=== PATIENT | female | born 1995 | race Two or more races ===

== ENCOUNTER 2024-10-24 08:36 | Emergency (ER) | payer MEDICAID, SELFPAY ==
[2024-10-24 09:12] VITALS: BP 122/85; PULSE 85; RESP 18; TEMP 36.8; O2SAT 95; BMI 36.8
[2024-10-24] MEDS: PROMETHAZINE/DM SYRUP 5 ML DOSE PO (09:49)
[2024-10-24] MEDS: IBUPROFEN TAB 400 MG TABLET 800 MG PO (09:49)
--- NOTE | 2024-10-24 10:27 | EDNOTE_ITS ---
Upper Respiratory Inf. RME/HPI General Chief Complaint: Flu Like Symptoms Stated Complaint: Cough, fever, chest pain X 1 week Time Seen by Provider: 10/24/24 09:06 Arrival date/time: 10/24/24 08:36 This is a 29-year-old female that comes in with complaints of cough, runny nose, and congestion for the past week. Patient states that sometimes she gets trouble breathing when she has coughing spells. Patient has a history of a C- section, cholecystectomy, partial hysterectomy, gastric sleeve. Related Data Previous Rx's ?Medication ?Instructions ?Recorded methocarbamol 750 mg tablet 750 mg PO TID #14 tabs 01/24/24 albuterol sulfate 90 mcg/actuation 1 puff inhalation QID PRN 10/24/24 aerosol inhaler shortness of breath or wheezing #8.5 grams ibuprofen 800 mg tablet 800 mg PO Q6H PRN pain #14 tabs 10/24/24 promethazine-DM 6.25 mg-15 mg/5 mL 5 ml PO Q6H PRN cough #120 mL 10/24/24 oral syrup Allergies Allergy/AdvReac Type Severity Reaction Status Date / Time No Known Allergies Allergy Verified 01/22/24 17:32 Review of Systems Review of Systems Systems Reviewed: All systems reviewed, normal except as documented Past Medical History Past Medical History NEUROLOGIC: Negative Neurological Disorders or Seizures CARDIAC: Negative Cardiac Disorders or Congestive Heart Failure RESPIRATORY: Negative Chronic Obstructive Pulmonary Disease (COPD) or Asthma GASTROINTESTINAL: Positive Gall Bladder Disease; Negative Gastrointestinal Disorders or Hepatitis GENITOURINARY: Negative Genitourinary Disorders or Renal Disease REPRODUCTIVE: Positive Previous Pregnancies MUSCULOSKELETAL: Negative Musculoskeletal Disorders ENDOCRINE: Positive Endocrine Disorders; Negative Diabetes Mellitus Type 1, Diabetes Mellitus Type 2 or Hypothyroidism HEMATOLOGIC: Negative Blood Disorders or Sickle Cell Disease PSYCHO/SOCIAL: Positive Anxiety OTHER HISTORY: Negative Hospitalization, Autoimmune Disease, Down Syndrome, Developmental Delay, Falls, Blood Transfusions, Blood Transfusion Reaction, Anesthesia Reactions, Human Immunodeficiency Virus (HIV), Chicken Pox, Measles, Mumps, Rubella (Pashto Measles), Pertussis or Clostridium Difficile Family History FAMILY HISTORY: Positive Family Cancer; Negative Family Psychiatric Problems, Family Respiratory Disorders, Family Cardiac Disorders, Family Gastrointestinal Problems, Family Surgery or Family Anesthesia Reaction Surgical History SURGICAL: Positive Hysterectomy and Section Social History SMOKING STATUS: Never smoker SUBSTANCE USE: does not use ED Exam General General appearance: Present alert and in no apparent distress Head Head exam: Present atraumatic Eye Eye exam: Present normal appearance, PERRL and EOMI ENT ENT exam: Present normal exam, normal oropharynx and mucous membranes moist Neck Neck exam: Present normal inspection, full ROM and trachea midline Chest Chest inspection: Present normal inspection and symmetric chest wall rise Respiratory Respiratory exam: Present normal lung sounds bilaterally Cardiovascular Cardiovascular exam: Present regular rate, normal rhythm and normal heart sounds Abdominal Exam Abdominal exam: Present soft Extremities Exam Extremities exam: Present normal inspection and full ROM Back Exam Back exam: Present normal inspection and full ROM Neurological Exam Neurological exam: Present alert, oriented X3 and CN II-XII intact Psychiatric Psychiatric exam: Present normal affect and normal mood Skin Skin exam: Present warm, dry, intact and normal color Course Quality Measures none Orders Category Date Time Status Bedside COVID-19 Antigen Test NOW Care 10/24/24 09:38 Completed Ibuprofen Tab [Motrin Tab] Med 10/24/24 09:36 Discontinued 800 mg PO X1 ONE Promethazine/Dextromethorph [Phenergan Dm Syrup] Med 10/24/24 09:35 Discontinued 5 ml PO X1 ONE Vital Signs Vital signs: Vital Signs Temperature 98.3 F 10/24/24 09:12 Pulse Rate 85 10/24/24 09:12 Respiratory Rate 18 10/24/24 09:12 Blood Pressure 122/85 H 10/24/24 09:12 Pulse Oximetry (%) 95 10/24/24 09:12 Oxygen Delivery Method Room Air 10/24/24 09:12 Upper Respiratory Infection MDM Narrative MDM Narrative:: Pt given ibuprofen and promethazine dm. She felt better. Will send pt home and have her follow up with primary provider in 1-2 days. Come back to ED if symptoms change or worsen. Patient data External records reviewed:: [facility] previous records Clinical information provided by:: patient Social determinants that could affect healthcare access:: none Patient has the following chronic illnesses:: see hpi How is presenting disease/condition affected by chronic disease/condition?: no chronic disease Evaluation data The following diagnostics were reviewed and interpreted by me:: lab results Lab and/or radiology exams considered but not ordered:: none Interpretation Summary: see note Medications / Prescriptions Medications or Prescriptions considered but not ordered:: none Medication administrations:: Medication Administration History Discontinued Medications Ibuprofen (Ibuprofen Tab 400 Mg Tablet) 800 mg PO X1 ONE Stop: 10/24/24 09:37 Last Admin: 10/24/24 09:49 Dose: 800 mg Documented By: SATNAM Promethazine HCl/Dextromethorphan (Promethazine/Dm Syrup 5 Ml Dose) 5 ml PO X1 ONE; Protocol Stop: 10/24/24 09:36 Last Admin: 10/24/24 09:49 Dose: 5 ml Documented By: SATNAM see mar Consultations Consultation(s) initiated? (list below): No Diagnosis Upper Respiratory Differential Diagnosis: upper respiratory infection, sinusitis, viral infection and influenza Most likely diagnosis given after review of the tests above:: upper respiratory infection Admission Indicated Admission indicated?: not indicated Admission Request Was there a request for admission?: No Disposition Plan Disposition Plan: Discharge Discharge Attestation Discharge Attestation: The patient and all family members were given an opportunity to ask questions and understood the discharge instructions. Discharge instructions specifically effects, indications for sooner follow up or return to the emergency department, and the expected course of current diagnosis. Patient condition: Stable Discharge Plan Plan Patient Disposition: HOME (Self Care) Patient condition on transfer: Stable Prescriptions/Referrals Prescriptions/Med Rec: New ibuprofen 800 mg tablet 800 mg PO Q6H PRN (Reason: pain) Qty: 14 0RF albuterol sulfate 90 mcg/actuation HFA aerosol inhaler 1 puff inhalation QID PRN (Reason: shortness of breath or wheezing) Qty: 8.5 0RF promethazine-DM 6.25-15 mg/5 mL syrup 5 ml PO Q6H PRN (Reason: cough) Qty: 120 0RF No Action methocarbamol 750 mg tablet 750 mg PO TID Qty: 14 0RF Referrals: Prem Alva MD [Primary Care Provider] - In 1 week Problem List Clinical Impression: Reactive airway disease, Cough, Upper respiratory infection, viral Patient/Caregiver Discharge Instructions Discharge Activity: activity as tolerated Education Materials: ED Inhaler Use, ED URI, Viral, No Abx (Adult) Additional Instructions: Follow-up with primary provider in 1 to 2 days. Come back to the emergency room if symptoms change or worsen. Print Language: Greenlandic Stand Alone Forms: Annamaria Award Info., Patient Portal Info Letter MANJIT/EH Supervising Physician MANJIT/EH Supervising Physician: bisi
== END 2024-10-24 11:39 | disposition home or self-care (01) ==
PROVIDERS: Emergency Provider Emergency Medicine; PCP Family Medicine
DX: J06.9 Acute upper respiratory infection, unspecified (principal); J45.909 Unspecified asthma, uncomplicated
CPT/HCPCS: 99282; A9270

== ENCOUNTER 2024-10-30 13:22 | Emergency (ER) | payer MEDICAID, SELFPAY ==
[2024-10-30 13:23] VITALS: BMI 32.5
[2024-10-30 14:10] VITALS: BP 118/64; PULSE 86; RESP 18; TEMP 37; O2SAT 95
--- NOTE | 2024-10-30 14:18 | XR_ITS ---
Examination: PA lateral chest 2 views Technique: Upright PA lateral chest 2 views Exam date and time: October 22, 2024 1427 hrs. Comparison January 22, 2024 Indications: Coughing beginning 3 weeks ago. Findings: Normal heart size The lungs are clear. The osseous structures are intact Impression: No active disease
--- NOTE | 2024-10-30 14:18 | PD.EDURI ---
Upper Respiratory Inf. RME/HPI General Chief Complaint: Flu Like Symptoms Stated Complaint: FLU SYMPTOMS FOR 2 WEEKS, FACIAL PAIN, HEADACHE Time Seen by Provider: 10/30/24 14:09 Source: patient Arrival date/time: 10/30/24 13:22 29-year-old female presents emergency department complaining of cough, headache, and right facial pain that is been ongoing for 2 weeks. Mode of arrival: ambulatory Limitations: no limitations Related Data Previous Rx's ?Medication ?Instructions ?Recorded methocarbamol 750 mg tablet 750 mg PO TID #14 tabs 01/24/24 albuterol sulfate 90 mcg/actuation 1 puff inhalation QID PRN 10/24/24 aerosol inhaler shortness of breath or wheezing #8.5 grams ibuprofen 800 mg tablet 800 mg PO Q6H PRN pain #14 tabs 10/24/24 promethazine-DM 6.25 mg-15 mg/5 mL 5 ml PO Q6H PRN cough #120 mL 10/24/24 oral syrup acetaminophen 500 mg capsule 500 mg PO Q6H PRN pain #30 caps 10/30/24 albuterol sulfate 90 mcg/actuation 2 puff inhalation Q6H PRN 10/30/24 aerosol inhaler (Ventolin HFA) shortness of breath or wheezing #6.7 grams prednisone 20 mg tablet 20 mg PO BID 3 days #6 tabs 10/30/24 Allergies Allergy/AdvReac Type Severity Reaction Status Date / Time No Known Allergies Allergy Verified 10/30/24 13:23 Review of Systems Review of Systems Systems Reviewed: All systems reviewed, normal except as documented Constitutional Constitutional: Reports system reviewed and no additional complaints, except as documented, Denies body ache(s), Denies chills, Denies fever(s) and Reports headache(s) Eyes Eyes: Reports system reviewed and no additional complaints, except as documented and Denies change in vision ENT Ears, Nose, Mouth, and Throat: Reports system reviewed and no additional complaints, except as documented, Denies disequilibrium, Denies dizziness, Reports headache(s), Denies sore throat and Denies vertigo Cardiovascular Cardiovascular: Reports system reviewed and no additional complaints, except as documented, Denies chest pain and Denies dyspnea Respiratory Respiratory: Reports system reviewed and no additional complaints, except as documented, Denies chest congestion, Reports cough and Denies dyspnea Gastrointestinal Gastrointestinal: Reports system reviewed and no additional complaints, except as documented, Denies abdominal pain, Denies nausea and Denies vomiting Musculoskeletal Musculoskeletal: Reports system reviewed and no additional complaints, except as documented, Denies abnormal gait, Denies arthralgias and Reports other (Facial pain) Integumentary/Breasts Skin/Breast: Reports system reviewed and no additional complaints, except as documented, Denies erythema, Denies rash and Denies wounds Neurologic Neurologic: Reports system reviewed and no additional complaints, except as documented, Denies abnormal gait, Denies disequilibrium, Denies dizziness, Reports headache(s) and Denies vertigo Past Medical History Past Medical History NEUROLOGIC: Negative Neurological Disorders or Seizures CARDIAC: Negative Cardiac Disorders or Congestive Heart Failure RESPIRATORY: Negative Chronic Obstructive Pulmonary Disease (COPD) or Asthma GASTROINTESTINAL: Positive Gall Bladder Disease; Negative Gastrointestinal Disorders or Hepatitis GENITOURINARY: Negative Genitourinary Disorders or Renal Disease REPRODUCTIVE: Positive Previous Pregnancies MUSCULOSKELETAL: Negative Musculoskeletal Disorders ENDOCRINE: Positive Endocrine Disorders; Negative Diabetes Mellitus Type 1, Diabetes Mellitus Type 2 or Hypothyroidism HEMATOLOGIC: Negative Blood Disorders or Sickle Cell Disease PSYCHO/SOCIAL: Positive Anxiety OTHER HISTORY: Negative Hospitalization, Autoimmune Disease, Down Syndrome, Developmental Delay, Falls, Blood Transfusions, Blood Transfusion Reaction, Anesthesia Reactions, Human Immunodeficiency Virus (HIV), Chicken Pox, Measles, Mumps, Rubella (Turkish Measles), Pertussis or Clostridium Difficile Family History FAMILY HISTORY: Positive Family Cancer; Negative Family Psychiatric Problems, Family Respiratory Disorders, Family Cardiac Disorders, Family Gastrointestinal Problems, Family Surgery or Family Anesthesia Reaction Surgical History SURGICAL: Positive Hysterectomy and Section Social History SMOKING STATUS: Never smoker SUBSTANCE USE: does not use ED Exam General Limitations: Present no limitations General appearance: Present alert and in no apparent distress Head Head exam: Present atraumatic Eye Eye exam: Present normal appearance, PERRL and EOMI ENT ENT exam: Present normal exam, normal oropharynx and mucous membranes moist Neck Neck exam: Present normal inspection, full ROM and trachea midline Chest Chest inspection: Present normal inspection and symmetric chest wall rise Respiratory Respiratory exam: Present normal lung sounds bilaterally and wheezes Cardiovascular Cardiovascular exam: Present regular rate, normal rhythm and normal heart sounds Abdominal Exam Abdominal exam: Present soft and normal bowel sounds Extremities Exam Extremities exam: Present normal inspection and full ROM Back Exam Back exam: Present normal inspection and full ROM Neurological Exam Neurological exam: Present alert, oriented X3 and CN II-XII intact Psychiatric Psychiatric exam: Present normal affect and normal mood Skin Skin exam: Present warm, dry, intact and normal color Course Quality Measures none Orders Category Date Time Status Bedside Influenza A&B Antigen Test NOW Care 10/30/24 14:18 Completed XR chest 2V Stat Exams 10/30/24 14:18 Completed Acetaminophen Tab [Tylenol ES Tab] Med 10/30/24 14:19 Discontinued 1,000 mg PO X1 ONE Albuterol/Ipratr Rt Janae [Duoneb Rt Janae] Med 10/30/24 14:18 Discontinued 3 ml INH X1 ONE Vital Signs Vital signs: Vital Signs Temperature 98.6 F 10/30/24 14:10 Pulse Rate 86 10/30/24 14:10 Respiratory Rate 18 10/30/24 14:10 Blood Pressure 118/64 10/30/24 14:10 Pulse Oximetry (%) 95 10/30/24 14:10 Oxygen Delivery Method Room Air 10/30/24 14:10 95% room air within normal limits Upper Respiratory Infection MDM Narrative MDM Narrative:: 29-year-old female presents emergency department complaining of cough, headache, and right facial pain that is been ongoing for 2 weeks. Bilateral upper lobe expiratory wheeze on auscultation and significant improved after breathing treatment. Chest x-ray was unremarkable for any pneumonic infiltrates. Patient likely has viral infection. Patient appears nontoxic and is hemodynamically stable. Patient not appear to be in respiratory distress. Patient data External records reviewed:: [facility] previous records Clinical information provided by:: patient Social determinants that could affect healthcare access:: none Patient has the following chronic illnesses:: None How is presenting disease/condition affected by chronic disease/condition?: no chronic disease Evaluation data The following diagnostics were reviewed and interpreted by me:: radiology exam(s) Lab and/or radiology exams considered but not ordered:: Ordered Interpretation Summary: Interpreted by me Medications / Prescriptions Medications or Prescriptions considered but not ordered:: Ordered Medication administrations:: Medication Administration History Discontinued Medications Acetaminophen (Acetaminophen 500 Mg Tablet) 1,000 mg PO X1 ONE Stop: 10/30/24 14:20 Last Admin: 10/30/24 14:25 Dose: 1,000 mg Documented By: Albuterol/Ipratropium (Albuterol/Ipratropium (Duoneb) Rt Janae 3 Ml Nebu) 3 ml INH X1 ONE Stop: 10/30/24 14:19 Last Admin: 10/30/24 14:34 Dose: 3 ml Documented By: MR Given Consultations Consultation(s) initiated? (list below): No Diagnosis Upper Respiratory Differential Diagnosis: upper respiratory infection, sinusitis, viral infection, bronchitis, influenza and pharyngitis Most likely diagnosis given after review of the tests above:: Viral infection Admission Indicated Admission indicated?: not indicated Admission Request Was there a request for admission?: No Disposition Plan Disposition Plan: Discharge Discharge Attestation Discharge Attestation: The patient and all family members were given an opportunity to ask questions and understood the discharge instructions. Discharge instructions specifically effects, indications for sooner follow up or return to the emergency department, and the expected course of current diagnosis. Patient condition: Stable Discharge Plan Plan Patient Disposition: HOME (Self Care) Disposition Comment: Stable Prescriptions/Referrals Prescriptions/Med Rec: New albuterol sulfate [Ventolin HFA] 90 mcg/actuation HFA aerosol inhaler 2 puff inhalation Q6H PRN (Reason: shortness of breath or wheezing) Qty: 6.7 0RF prednisone 20 mg tablet 20 mg PO BID 3 Days Qty: 6 0RF Taper: Prednisone Taper 20 mg DAILY for 2 Days and 0 Hour 10 mg DAILY for 2 Days and 0 Hour 5 mg DAILY for 7 Days and 0 Hour acetaminophen 500 mg capsule 500 mg PO Q6H PRN (Reason: pain) Qty: 30 0RF No Action ibuprofen 800 mg tablet 800 mg PO Q6H PRN (Reason: pain) Qty: 14 0RF albuterol sulfate 90 mcg/actuation HFA aerosol inhaler 1 puff inhalation QID PRN (Reason: shortness of breath or wheezing) Qty: 8.5 0RF promethazine-DM 6.25-15 mg/5 mL syrup 5 ml PO Q6H PRN (Reason: cough) Qty: 120 0RF methocarbamol 750 mg tablet 750 mg PO TID Qty: 14 0RF Problem List Clinical Impression: Viral infection Patient/Caregiver Discharge Instructions Discharge Activity: activity as tolerated Education Materials: ED Viral Syndrome (Adult) Additional Instructions: Take Tylenol or ibuprofen as needed for fever or pain. Use inhaler as needed for any shortness of breath or wheezing. Drink plenty of fluids and get plenty of rest. Follow-up with primary care provider in 2 to 3 days. Return to emergency department for any worsening symptoms or as needed. Print Language: Namibian Stand Alone Forms: Annamaria Award Info., Patient Portal Info Letter PA/BINDING MACHINE OPERATOR Supervising Physician PA/BINDING MACHINE OPERATOR Supervising Physician: Dr. Gonzalez
[2024-10-30] MEDS: ACETAMINOPHEN 500 MG TABLET 1000 MG PO (14:25)
[2024-10-30] MEDS: ALBUTEROL/IPRATROPIUM (Duoneb) RT SOL 3 ML NEBU INH (14:34)
[2024-10-30 14:43] VITALS: PULSE 84; RESP 16; O2SAT 99
== END 2024-10-30 15:46 | disposition home or self-care (01) ==
PROVIDERS: Emergency Provider Emergency Medicine
DX: B34.9 Viral infection, unspecified (principal)
CPT/HCPCS: 71046; 87400; 94640; 99283; A9270

== ENCOUNTER 2025-04-28 17:00 | Emergency (ER) | payer MEDICAID, SELFPAY ==
[2025-04-28 18:42] VITALS: BMI 28.1
[2025-04-28 18:43] VITALS: BP 125/87; PULSE 77; RESP 17; TEMP 36.5; O2SAT 99
--- NOTE | 2025-04-28 19:34 | XR_ITS ---
Examination: CT brain head without contrast. 2-D sagittal coronal reconstructions Date and time of exam:April 28, 2025, 195 hours Comparison 07/18/2021 INDICATIONS: Headaches blurred vision today, history headaches CTDI: vol (mGy):46 DLP: (mGycm):880 Technique: Multiple CT axial sections of the brain have been obtained, 5 mm slice thickness. Contrast has not been administered. 2-D sagittal, coronal reconstructions have been obtained Low dose protocols were performed. One or more of the following dose reduction techniques were used; automated exposure control, adjustment of the mA and/or KV according to patient size, use of iterative reconstruction technique. Findings: No significant ventricular enlargement. Intra-axial or extra-axial hemorrhage density is not seen. No mass effect or midline shift Basal cisterns are not remarkable. Fourth ventricle is midline. Cranial vault intact. Prominent maxillary antral and ethmoid sinusitis Impression: Negative for acute hemorrhage, mass effect or midline shift
[2025-04-28] MEDS: METOCLOPRAMIDE 5 MG TABLET 10 MG PO (20:14)
[2025-04-28] MEDS: SUMAtriptan INJ 6 MG/0.5 ML VIAL SC (20:15)
--- NOTE | 2025-04-28 22:11 | EDNOTE_ITS ---
<Statement entered by Sally De La Paz MD - 04/29/25 23:29> As co-signing physician, I was present and available for consult prn. I concur with the plan and care as documented by the midlevel provider. ED Headache RME/HPI General Chief Complaint: Headache Stated Complaint: TIDWELL since noon today, blurry vision Time Seen by Provider: 04/28/25 19:34 Arrival date/time: 04/28/25 17:00 29F with no significant PMH presents to ED with 1 day of R-sided TIDWELL, blurry vision, and light sensitivity. Patient denies AMS, seizures, slurred speech, and fall/trauma. Limitations: no limitations Related Data Previous Rx's ?Medication ?Instructions ?Recorded methocarbamol 750 mg tablet 750 mg PO TID #14 tabs albuterol sulfate 90 mcg/actuation 1 puff inhalation Q ID PRN 10/24/24 aerosol inhaler shortness of breath or wheez ing #8.5 grams ibuprofen 800 mg tablet 800 mg PO Q6H PRN pain #14 t abs 10/24/24 promethazine-DM 6.25 mg-15 mg/5 mL 5 ml PO Q6H PRN cou gh #120 mL 10/24/24 oral syrup acetaminophen 500 mg capsule 500 mg PO Q6H PRN pain #3 0 caps 10/30/24 albuterol sulfate 90 mcg/actuation 2 puff inhalation Q 6H PRN 10/30/24 aerosol inhaler (Ventolin HFA) shortness of breath or wheezing #6.7 grams rizatriptan 10 mg disintegrating See Rx Instructions P O .COMPLEX 04/28/25 tablet (Maxalt-OLIVE GRADER) #20 tabs Allergies Allergy/AdvReac Type Severity Reaction Status Date / Time No Known Allergies Allergy Verified 04/28/25 17:04 Review of Systems Review of Systems Systems Reviewed: All systems reviewed, normal except as documented Constitutional Constitutional: Reports system reviewed and no additional complaints, except as documented, Reports as per HPI, Denies fever(s) and Reports headache(s) Eyes Eyes: Reports as per HPI, Reports blurry vision and Reports photophobia ENT Ears, Nose, Mouth, and Throat: Denies disequilibrium and Reports headache(s) Cardiovascular Cardiovascular: Reports system reviewed and no additional complaints, except as documented, Denies chest pain and Denies dyspnea Respiratory Respiratory: Reports system reviewed and no additional complaints, except as documented, Denies cough and Denies dyspnea Gastrointestinal Gastrointestinal: Reports system reviewed and no additional complaints, except as documented, Denies abdominal pain, Denies nausea and Denies vomiting Neurologic Neurologic: Reports system reviewed and no additional complaints, except as documented, Denies confusion, Denies disequilibrium and Reports headache(s) Psychiatric Psychiatric: Denies confusion Past Medical History Past Medical History NEUROLOGIC: Negative Neurological Disorders or Seizures CARDIAC: Negative Cardiac Disorders or Congestive Heart Failure RESPIRATORY: Negative Chronic Obstructive Pulmonary Disease (COPD) or Asthma GASTROINTESTINAL: Positive Gall Bladder Disease; Negative Gastrointestinal Disorders or Hepatitis GENITOURINARY: Negative Genitourinary Disorders or Renal Disease REPRODUCTIVE: Positive Previous Pregnancies MUSCULOSKELETAL: Negative Musculoskeletal Disorders ENDOCRINE: Positive Endocrine Disorders; Negative Diabetes Mellitus Type 1, Diabetes Mellitus Type 2 or Hypothyroidism HEMATOLOGIC: Negative Blood Disorders or Sickle Cell Disease PSYCHO/SOCIAL: Positive Anxiety OTHER HISTORY: Negative Hospitalization, Autoimmune Disease, Down Syndrome, Developmental Delay, Falls, Blood Transfusions, Blood Transfusion Reaction, Anesthesia Reactions, Human Immunodeficiency Virus (HIV), Chicken Pox, Measles, Mumps, Rubella (Vincentian Measles), Pertussis or Clostridium Difficile Family History FAMILY HISTORY: Positive Family Cancer; Negative Family Psychiatric Problems, Family Respiratory Disorders, Family Cardiac Disorders, Family Gastrointestinal Problems, Family Surgery or Family Anesthesia Reaction Surgical History SURGICAL: Positive Hysterectomy and Section Social History SMOKING STATUS: Never smoker SUBSTANCE USE: does not use ED Exam General Limitations: Present no limitations General appearance: Present alert and in no apparent distress Head Head exam: Present atraumatic Eye Eye exam: Present normal appearance, PERRL and EOMI ENT ENT exam: Present normal exam, normal oropharynx and mucous membranes moist Neck Neck exam: Present normal inspection, full ROM and trachea midline Chest Chest inspection: Present normal inspection and symmetric chest wall rise Respiratory Respiratory exam: Present normal lung sounds bilaterally Cardiovascular Cardiovascular exam: Present regular rate, normal rhythm and normal heart sounds Abdominal Exam Abdominal exam: Present soft and normal bowel sounds Extremities Exam Extremities exam: Present normal inspection and full ROM Back Exam Back exam: Present normal inspection and full ROM Neurological Exam Neurological exam: Present alert, oriented X3 and CN II-XII intact Psychiatric Psychiatric exam: Present normal affect and normal mood Skin Skin exam: Present warm, dry, intact and normal color Course Quality Measures none Orders Category Date Time Status CT head/brain wo con Stat Exams 04/28/25 19:34 Completed Metoclopramide [Reglan] Med 04/28/25 19:34 Discontinued 10 mg PO X1 ONE SUMAtriptan INJ [Imitrex Inj] Med 04/28/25 19:34 Discontinued 6 mg SC X1 ONE Vital Signs Vital signs: Vital Signs Temperature 97.7 F 04/28/25 18:43 Pulse Rate 77 04/28/25 18:43 Respiratory Rate 17 04/28/25 18:43 Blood Pressure 125/87 H 04/28/25 18:43 Pulse Oximetry (%) 99 04/28/25 18:43 Oxygen Delivery Method Room Air 04/28/25 18:43 O2 at 99% on RA and WNLs Headache MDM Narrative MDM Narrative:: 29F with no significant PMH presents to ED with 1 day of R-sided TIDWELL, blurry vision, and light sensitivity. Patient denies AMS, seizures, slurred speech, and fall/trauma. Physical exam reveals normal pupil response and EOM. CN II-XII grossly intact. Normal speech. Strength equal bilaterally. Gait normal. Patient is afebrile, calm, and alert. CT unremarkable. Migraine cocktail improved symtoms. Patient data External records reviewed:: [facility] previous records Clinical information provided by:: patient Social determinants that could affect healthcare access:: none Patient has the following chronic illnesses:: none How is presenting disease/condition affected by chronic disease/condition?: no chronic disease Evaluation data The following diagnostics were reviewed and interpreted by me:: radiology exam(s) Lab and/or radiology exams considered but not ordered:: ordered Interpretation Summary: above Medications / Prescriptions Medications or Prescriptions considered but not ordered:: ordered Medication administrations:: Medication Administration History Discontinued Medications Metoclopramide HCl (Metoclopramide 5 Mg Tablet) 10 mg PO X1 ONE Stop: 04/28/25 19:35 Last Admin: 04/28/25 20:14 Dose: 10 mg Documented By: Sumatriptan Succinate (Sumatriptan Inj 6 Mg/0.5 Ml Vial) 6 mg SC X1 ONE Stop: 04/28/25 19:35 Last Admin: 04/28/25 20:15 Dose: 6 mg Documented By: above Consultations Consultation(s) initiated? (list below): No Diagnosis Differential diagnosis headache: migraine, tension headache, subarachnoid hemorrhage, headache, meningitis, sinusitis and postconcussion syndrome Most likely diagnosis given after review of the tests above:: migraine Admission Indicated Admission indicated?: not indicated Admission Request Was there a request for admission?: No Disposition Plan Disposition Plan: Discharge Discharge Attestation Discharge Attestation: The patient and all family members were given an opportunity to ask questions and understood the discharge instructions. Discharge instructions specifically effects, indications for sooner follow up or return to the emergency department, and the expected course of current diagnosis. Patient condition: Stable Discharge Plan Plan Patient Disposition: HOME (Self Care) Discharge Disposition comment: Stable Prescriptions/Referrals Prescriptions/Med Rec: New rizatriptan [Maxalt-OLIVE GRADER] 10 mg tablet,disintegrating See Rx Instructions .ROUTE .COMPLEX Qty: 20 0RF Rx Instructions: take 1 tab at onset of headache; if no relief may repeat 1 tab after at least 2 hrs; max = 3 tabs/24 hr No Action ibuprofen 800 mg tablet 800 mg PO Q6H PRN (Reason: pain) Qty: 14 0RF albuterol sulfate 90 mcg/actuation HFA aerosol inhaler 1 puff inhalation QID PRN (Reason: shortness of breath or wheezing) Qty: 8.5 0RF promethazine-DM 6.25-15 mg/5 mL syrup 5 ml PO Q6H PRN (Reason: cough) Qty: 120 0RF albuterol sulfate [Ventolin HFA] 90 mcg/actuation HFA aerosol inhaler 2 puff inhalation Q6H PRN (Reason: shortness of breath or wheezing) Qty: 6.7 0RF acetaminophen 500 mg capsule 500 mg PO Q6H PRN (Reason: pain) Qty: 30 0RF methocarbamol 750 mg tablet 750 mg PO TID Qty: 14 0RF Referrals: Prem Alva MD [Primary Care Provider] - In 1 week Problem List Clinical Impression: Migraine Patient/Caregiver Discharge Instructions Education Materials: ED Headache, Migraine, Classic Additional Instructions: Please follow-up with PCP within 24-48 hours and return immediately if symptoms worsen. NSAIDs like ibuprofen tend to work better for this type of pain. Take first before Maxalt. Print Language: Persian Stand Alone Forms: Patient Portal Info Letter MANJIT/EH Supervising Physician MANJIT/EH Supervising Physician: Dr. De La Paz
== END 2025-04-28 21:26 | disposition home or self-care (01) ==
PROVIDERS: Emergency Provider Emergency Medicine; PCP Family Medicine
DX: G43.909 Migraine, unspecified, not intractable, without status migrainosus (principal)
CPT/HCPCS: 70450; 96372; 99284; J3030; A9270

== ENCOUNTER 2025-08-22 10:17 | Emergency (ER) | payer MEDICAID, SELFPAY ==
[2025-08-22 10:17] VITALS: BMI 27.4
[2025-08-22 10:40] VITALS: BP 127/68; PULSE 87; RESP 18; TEMP 36.9; O2SAT 99
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
--- NOTE | 2025-08-22 10:45 | EDNOTE_ITS ---
<Statement entered by Sally De La Paz MD - 08/22/25 14:40> As co-signing physician, I was present and available for consult prn. I concur with the plan and care as documented by the midlevel provider. Lower Extremity Injury RME/HPI General Chief Complaint: Ankle/Foot Injury Stated Complaint: LEFT ANKLE INJURY Time Seen by Provider: 08/22/25 10:37 Source: patient Arrival date/time: 08/22/25 10:17 30-year-old female with no known medical history presents to the emergency room with a chief complaint of tenderness and pain to her left lower leg x 1 week. Patient states she has a history of an ankle fracture to the area. Mode of arrival: ambulatory Limitations: no limitations Related Data Previous Rx's ?Medication ?Instructions ?Recorded methocarbamol 750 mg tablet 750 mg PO TID #14 tabs albuterol sulfate 90 mcg/actuation 1 puff inhalation Q ID PRN 10/24/24 aerosol inhaler shortness of breath or wheez ing #8.5 grams ibuprofen 800 mg tablet 800 mg PO Q6H PRN pain #14 t abs 10/24/24 promethazine-DM 6.25 mg-15 mg/5 mL 5 ml PO Q6H PRN cou gh #120 mL 10/24/24 oral syrup acetaminophen 500 mg capsule 500 mg PO Q6H PRN pain #3 0 caps 10/30/24 albuterol sulfate 90 mcg/actuation 2 puff inhalation Q 6H PRN 10/30/24 aerosol inhaler (Ventolin HFA) shortness of breath or wheezing #6.7 grams rizatriptan 10 mg disintegrating See Rx Instructions P O .COMPLEX 04/28/25 tablet (Maxalt-TO[employer]T PRODUCTS MOLDER) #20 tabs ibuprofen 600 mg tablet 600 mg PO Q8H PRN fever or p ain 08/22/25 #20 tabs Allergies Allergy/AdvReac Type Severity Reaction Status Date / Time No Known Allergies Allergy Verified 08/22/25 10:19 Review of Systems Review of Systems Systems Reviewed: All systems reviewed, normal except as documented Constitutional Constitutional: Reports system reviewed and no additional complaints, except as documented, Denies fatigue, Denies fever(s), Denies headache(s) and Denies weakness Eyes Eyes: Reports system reviewed and no additional complaints, except as documented, Denies blurry vision and Denies change in vision ENT Ears, Nose, Mouth, and Throat: Reports system reviewed and no additional complaints, except as documented, Denies otalgia, Denies headache(s), Denies nasal congestion, Denies throat swelling and Denies vertigo Cardiovascular Cardiovascular: Reports system reviewed and no additional complaints, except as documented, Denies chest pain, Denies dyspnea and Denies dyspnea on exertion Respiratory Respiratory: Reports system reviewed and no additional complaints, except as documented, Denies chest congestion, Denies cough, Denies dyspnea, Denies dyspnea on exertion and Denies wheezing Gastrointestinal Gastrointestinal: Reports system reviewed and no additional complaints, except as documented, Denies abdominal pain, Denies cramping, Denies nausea and Denies vomiting Genitourinary Genitourinary: Reports system reviewed and no additional complaints, except as documented Musculoskeletal Musculoskeletal: Reports system reviewed and no additional complaints, except as documented, Reports abnormal gait, Reports arthralgias, Denies back pain and Reports limited range of motion Integumentary/Breasts Skin/Breast: Reports system reviewed and no additional complaints, except as documented and Denies wounds Neurologic Neurologic: Reports system reviewed and no additional complaints, except as documented, Reports abnormal gait, Denies confusion, Denies headache(s), Denies lack of coordination, Denies vertigo and Denies weakness Psychiatric Psychiatric: Reports system reviewed and no additional complaints, except as documented, Denies anxiety, Denies confusion, Denies depression, Denies paranoia, Denies suicidal ideation and Denies tactile hallucinations Endocrine Endocrine: Reports system reviewed and no additional complaints, except as documented and Denies fatigue Hematologic/Lymphatic Hematologic/Lymphatic: Reports system reviewed and no additional complaints, except as documented and Denies lymphadenopathy Allergic/Immunologic Allergic/Immunologic: Reports system reviewed and no additional complaints, except as documented, Denies throat swelling, Denies urticaria and Denies wheezing Past Medical History Past Medical History NEUROLOGIC: Negative Neurological Disorders or Seizures CARDIAC: Negative Cardiac Disorders or Congestive Heart Failure RESPIRATORY: Negative Chronic Obstructive Pulmonary Disease (COPD) or Asthma GASTROINTESTINAL: Positive Gall Bladder Disease; Negative Gastrointestinal Disorders or Hepatitis GENITOURINARY: Negative Genitourinary Disorders or Renal Disease REPRODUCTIVE: Positive Previous Pregnancies MUSCULOSKELETAL: Negative Musculoskeletal Disorders ENDOCRINE: Positive Endocrine Disorders; Negative Diabetes Mellitus Type 1, Diabetes Mellitus Type 2 or Hypothyroidism HEMATOLOGIC: Negative Blood Disorders or Sickle Cell Disease PSYCHO/SOCIAL: Positive Anxiety OTHER HISTORY: Negative Hospitalization, Autoimmune Disease, Down Syndrome, Developmental Delay, Falls, Blood Transfusions, Blood Transfusion Reaction, Anesthesia Reactions, Human Immunodeficiency Virus (HIV), Chicken Pox, Measles, Mumps, Rubella (Kyrgyz Measles), Pertussis or Clostridium Difficile Family History FAMILY HISTORY: Positive Family Cancer; Negative Family Psychiatric Problems, Family Respiratory Disorders, Family Cardiac Disorders, Family Gastrointestinal Problems, Family Surgery or Family Anesthesia Reaction Surgical History SURGICAL: Positive Hysterectomy and Section Social History SMOKING STATUS: Never smoker SUBSTANCE USE: does not use ED Exam General Limitations: Present no limitations General appearance: Present alert and in no apparent distress Head Head exam: Present atraumatic Eye Eye exam: Present normal appearance, PERRL and EOMI ENT ENT exam: Present normal exam, normal oropharynx and mucous membranes moist Neck Neck exam: Present normal inspection, full ROM and trachea midline Chest Chest inspection: Present normal inspection and symmetric chest wall rise Respiratory Respiratory exam: Present normal lung sounds bilaterally Cardiovascular Cardiovascular exam: Present regular rate, normal rhythm and normal heart sounds Abdominal Exam Abdominal exam: Present soft and normal bowel sounds Extremities Exam Extremities exam: Present normal inspection and full ROM Expanded Lower Extremity Exam Hip/Pelvis exam: Present normal inspection Upper leg exam: Present normal inspection Knee exam: Present normal inspection Lower leg exam: Present normal inspection, full ROM, tenderness, swelling and Achilles tendon intact; Absent deformity, erythema or Homans' sign Ankle exam: Present normal inspection Foot/toe exam: Present normal inspection Gait: observed and limited by pain Back Exam Back exam: Present normal inspection and full ROM Neurological Exam Neurological exam: Present alert, oriented X3 and CN II-XII intact Psychiatric Psychiatric exam: Present normal affect and normal mood Skin Skin exam: Present warm, dry, intact and normal color Course Quality Measures none Orders Category Date Time Status ronald wrap [Splint / Immobilizer] STAT Care 08/22/25 11:31 Active XR tibia fibula LT 2V Stat Exams 08/22/25 10:43 Completed Ketorolac Inj [Toradol Inj] Med 08/22/25 10:43 Discontinued 30 mg IM X1 ONE Vital Signs Vital signs: Vital Signs Temperature 98.5 F 08/22/25 10:40 Pulse Rate 87 08/22/25 10:40 Respiratory Rate 18 08/22/25 10:40 Blood Pressure 127/68 08/22/25 10:40 Pulse Oximetry (%) 99 08/22/25 10:40 Oxygen Delivery Method Room Air 08/22/25 10:40 Extremity Injury, Lower MDM Narrative MDM Narrative:: 30-year-old female with no known medical history presents to the emergency room with a chief complaint of tenderness and pain to her left lower leg x 1 week. Patient states she has a history of an ankle fracture to the area. Patient is hemodynamically stable and in no apparent distress Physical examination shows tenderness and pain to the left tib-fib above the left ankle. Patient has a history of an old fracture to the area which was surgically repaired and orthopedic hardware was put in place. Patient states that she has been going on jogs and on a hike and after she began to develop this pain in the area. An x-ray was completed and shows healed fractures in the distal tibia and distal fibula with satisfactory alignment and the hardware is in satisfactory position. Patient was discharged and educated to follow-up with primary care provider in the next 24 to 48 hours and return to the emergency room for any evidence of worsening signs or symptoms Patient data External records reviewed:: [facility] previous records Clinical information provided by:: patient Social determinants that could affect healthcare access:: none Patient has the following chronic illnesses:: No chronic illness How is presenting disease/condition affected by chronic disease/condition?: no chronic disease Evaluation data The following diagnostics were reviewed and interpreted by me:: lab results and radiology exam(s) Lab and/or radiology exams considered but not ordered:: Labs and radiology exams considered and ordered Interpretation Summary: X-ray [id number]: Healed fractures distal tibia and distal fibula with satisfactory alignment Orthopedic hardware in satisfactory position No cortical bone destruction No new fractures IMPRESSION: Healed fractures distal tibia and distal fibula with satisfactory alignment Medications / Prescriptions Medications or Prescriptions considered but not ordered:: Medication given Medication administrations:: Medication Administration History Discontinued Medications Ketorolac Tromethamine (Ketorolac Inj 60 Mg/2 Ml Vial) 30 mg IM X1 ONE Stop: 08/22/25 10:44 Last Admin: 08/22/25 10:48 Dose: 30 mg Documented By: NOE Medication given Consultations Consultation(s) initiated? (list below): No Diagnosis Extremity Injury, Lower Differential Diagnosis: ankle sprain and strain, puncture wound of foot and other (Acute pain of left lower extremity) Most likely diagnosis given after review of the tests above:: Acute pain of left lower extremity Admission Indicated Admission indicated?: not indicated Admission Request Was there a request for admission?: No Disposition Plan Disposition Plan: Discharge Discharge Attestation Discharge Attestation: The patient and all family members were given an opportunity to ask questions and understood the discharge instructions. Discharge instructions specifically effects, indications for sooner follow up or return to the emergency department, and the expected course of current diagnosis. Patient condition: Stable Discharge Plan Plan Patient Disposition: HOME (Self Care) Discharge Disposition comment: Stable Prescriptions/Referrals Prescriptions/Med Rec: New ibuprofen 600 mg tablet 600 mg PO Q8H PRN (Reason: fever or pain) Qty: 20 0RF No Action ibuprofen 800 mg tablet 800 mg PO Q6H PRN (Reason: pain) Qty: 14 0RF albuterol sulfate 90 mcg/actuation HFA aerosol inhaler 1 puff inhalation QID PRN (Reason: shortness of breath or wheezing) Qty: 8.5 0RF promethazine-DM 6.25-15 mg/5 mL syrup 5 ml PO Q6H PRN (Reason: cough) Qty: 120 0RF albuterol sulfate [Ventolin HFA] 90 mcg/actuation HFA aerosol inhaler 2 puff inhalation Q6H PRN (Reason: shortness of breath or wheezing) Qty: 6.7 0RF acetaminophen 500 mg capsule 500 mg PO Q6H PRN (Reason: pain) Qty: 30 0RF methocarbamol 750 mg tablet 750 mg PO TID Qty: 14 0RF rizatriptan [Maxalt-TOILET PRODUCTS MOLDER] 10 mg tablet,disintegrating See Rx Instructions .ROUTE .COMPLEX Qty: 20 0RF Rx Instructions: take 1 tab at onset of headache; if no relief may repeat 1 tab after at least 2 hrs; max = 3 tabs/24 hr Referrals: No Primary/Family,Physician [Primary Care Provider] - In 1 week Problem List Clinical Impression: Acute pain of left lower extremity Patient/Caregiver Discharge Instructions Education Materials: ED RONALD Wrap, ED Myalgias Additional Instructions: Please follow-up with your primary care provider in the next 24 to 48 hours The x-ray of your left foot was negative for any acute fracture dislocations. The hardware in place from your previous ankle fracture is in satisfactory position For any evidence of worsening signs or symptoms return to the emergency room immediately Print Language: Kittitian Stand Alone Forms: Annamaria Award Info., Work/School Release, Patient Portal Info Letter PA/MONITORING MANAGER Supervising Physician PA/MONITORING MANAGER Supervising Physician: Dr. River
[2025-08-22] MEDS: KETOROLAC INJ 60 MG/2 ML VIAL 30 MG IM (10:48)
== END 2025-08-22 14:10 | disposition home or self-care (01) ==
PROVIDERS: Emergency Provider Emergency Medicine
DX: S99.912A Unspecified injury of left ankle, initial encounter (principal); X58.XXXA Exposure to other specified factors, initial encounter
CPT/HCPCS: 73590; 96372; 99284; J1885